=== PATIENT | female | born 1990 | race African-American/Black ===

== ENCOUNTER 2021-09-12 17:58 | Emergency (ER) | payer MEDICAID, OTHER ==
[~2021-09-12] VITALS: Ht 157.5 cm; Wt 71.7 kg
[2021-09-12 19:41] VITALS: BP 149/91
== END 2021-09-12 19:29 | disposition left against medical advice (07) ==
LOC: ER 18:02
DX: Z00.00 Encounter for general adult medical examination without abnormal findings (principal); Z53.21 Procedure and treatment not carried out due to patient leaving prior to being seen by health care provider